=== PATIENT | female | born 1970 | race African-American/Black ===

== ENCOUNTER 2019-01-21 10:52 | Inpatient (IN) | payer OTHER ==
[2019-01-21 11:17] VITALS: BMI 27.4
--- NOTE | 2019-01-21 11:44 | HP ---
CIWA Score Nausea/Vomitin Muscle Tremors: 3 Anxiety: 3 Agitation: 2 Paroxysmal Sweats: 1-Minimal Palms Moist Orientation: 0-Oriented Tacttile Disturbances: 1-Very Mild Itch/Numbness Auditory Disturbances: 0-None Visual Disturbances: 0-None Headache: 2-Mild CIWA-Ar Total Score: 14 - Admission Criteria OASAS Guidelines: Admission for Medically Managed Detox: Requires at least one of the followin. CIWA greater than 12 2. Seizures within the past 24 hours 3. Delirium tremens within the past 24 hours 4. Hallucinations within the past 24 hours 5. Acute intervention needed for co occurring medical disorder 6. Acute intervention needed for co occurring psychiatric disorder 7. Severe withdrawal that cannot be handled at a lower level of care (continued vomiting, continued diarrhea, abnormal vital signs) requiring intravenous medication and/or fluids 8. Admission ROS [facility] Chief Complaint: I am here to get myself together from alcohol and drug Allergies/Adverse Reactions: Allergies Allergy/AdvReac Type Severity Reaction Status Date / Time No Known Allergies Allergy Verified 01/21/19 11:07 History of Present Illness: this 48 years old female with alcohol,cocaine,marijuana,k2 and heroin abused, seeking help to stop using, withdrawal symptom,multiple admissions before since age of 29 ,also been to rehab keep relapsing,last detox [facility] in 2018 homeless history of hypertension,type 2 dm,hypercholesterolemia non compliance nicotine dependence 8 cigarette,would like to have nicotine patch and gum denied seizure syncope history of bipolar disorder,schizophrenia,depression,ptsd longest sobriety 5 years plan for rehab after detox Exam Limitations: No Limitations - Ebola screening Have you traveled outside of the country in the last 21 days: No Have you had contact with anyone from an Ebola affected area: No - Review of Systems Constitutional: Loss of Appetite, Malaise, Night Sweats, Changes in sleep, Weakness EENT: reports: Tearing, Nose Congestion Respiratory: reports: No Symptoms reported Cardiac: reports: No Symptoms Reported GI: reports: Diarrhea, Nausea, Poor Appetite : reports: No Symptoms Reported Integumentary: reports: Dryness, Sweating Neuro: reports: Headache, Tremors Endocrine: reports: No Symptoms Reported (non compliance) Hematology: reports: No Symptoms Reported Psychiatric: reports: No Sypmtoms Reported, Judgement Intact, Mood/Affect Appropiate, Orientated x3 (bipolar disorder,schizophrenia,ptsd) Other Systems: Reviewed and Negative Patient History - Patient Medical History Hx Anemia: No Hx Asthma: No Hx Chronic Obstructive Pulmonary Disease (COPD): No Hx Cancer: No Hx Cardiac Disorders: No Hx Congestive Heart Failure: No Hx Hypertension: Yes (non compliance) Hx Hypercholesterolemia: Yes (non compliance) Hx Pacemaker: No HX Cerebrovascular Accident: No Hx Seizures: No Hx Dementia: No Hx Diabetes: Yes (NIDDM,non compliance) Hx Gastrointestinal Disorders: No Hx Liver Disease: No Hx Genitourinary Disorders: No Hx Sexually Transmitted Disorders: No Hx Renal Disease (ESRD): No Hx Thyroid Disease: No Hx Human Immunodeficiency Virus (HIV): No (last 11/14 negative) Hx Hepatitis C: No Hx Depression: Yes Hx Suicide Attempt: Yes (cutter right wrist at age 19) Hx Bipolar Disorder: Yes Hx Schizophrenia: Yes Other Medical History: ptsd,no suicidal,no homicidal - Patient Surgical History Past Surgical History: Yes Hx Neurologic Surgery: No Hx Cataract Extraction: No Hx Cardiac Surgery: No Hx Lung Surgery: No Hx Breast Surgery: No Hx Breast Biopsy: No Hx Abdominal Surgery: No Hx Appendectomy: No Hx Cholecystectomy: No Hx Genitourinary Surgery: No Hx Section: No Hx Orthopedic Surgery: Yes (fx, right lower leg in 2015 after a fall on black ice) Anesthesia Reaction: No - PPD History Previous Implant?: Yes Documented Results: Negative w/o proof Implanted On Prior R Admission?: No PPD to be Administered?: No - Reproductive History Patient is a Female of Child Bearing Age (11 -55 yrs old): Yes Last Menstrual Period: 01/15/19 Patient : No - Smoking Cessation Smoking history: Current every day smoker Have you smoked in the past 12 months: Yes Aproximately how many cigarettes per day: 6 Hx Chewing Tobacco Use: No Initiated information on smoking cessation: Yes 'Breaking Loose' booklet given: 01/21/19 - Substances abused Alcohol Substance route: Oral Frequency: Daily Amount used: 1 pint of vodka & 4 of 40 ozs of beer Age of first use: 29 Date of last use: 01/20/19 Crack Substance route: Smoking Frequency: Daily Amount used: $40 Age of first use: 28 Date of last use: 01/20/19 K2/Spice Substance route: Smoking Frequency: Daily Amount used: 2 sticks Age of first use: 43 Date of last use: 01/19/19 Heroin Substance route: Inhalation Frequency: Daily Amount used: $ 50 Age of first use: 43 Date of last use: 01/20/19 Marijuana/Hashish Substance route: Smoking Frequency: 3-6 times per week Amount used: 10$ Age of first use: 13 Date of last use: 01/19/19 Family Disease History - Family Disease History Family Disease History: Other: Father (alcohol,cirrhosis,), Mother (no contact) Admission Physical Exam [facility] - Vital Signs Vital Signs: Vital Signs - 24 hr 01/21/19 11:07 Temperature 97.3 F L Pulse Rate 87 Respiratory 16 Rate Blood Pressure 158/90 - Physical General Appearance: Yes: Moderate Distress, Tremorous, Irritable, Sweating, Anxious HEENTM: Yes: Normal ENT Inspection, UMAIR, Pharynx Normal Respiratory: Yes: Lungs Clear, Normal Breath Sounds, No Respiratory Distress Neck: Yes: No masses,lesions,Nodules, Supple, Trachea in good position Breast: Yes: Breast Exam Deferred Cardiology: Yes: Within Normal Limits, Regular Rhythm, Regular Rate, S1, S2 Abdominal: Yes: Within Normal Limits, Normal Bowel Sounds, Non Tender, Flat, Soft Genitourinary: Yes: Within Normal Limits Back: Yes: Muscle Spasm Musculoskeletal: Yes: Back pain, Muscle Pain Extremities: Yes: Tremors Neurological: Yes: 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-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 NML intact, Fully Oriented, Alert, Motor Strength 5/5 Integumentary: Yes: Dry Lymphatic: Yes: Within Normal Limits - Diagnostic (1) Alcohol dependence with uncomplicated withdrawal Current Visit: Yes Status: Acute (2) Cocaine dependence, uncomplicated Current Visit: Yes Status: Acute (3) Cannabis dependence Current Visit: Yes Status: Acute (4) Heroin abuse Current Visit: Yes Status: Acute (5) DM2 (diabetes mellitus, type 2) Current Visit: Yes Status: Acute (6) Hypertension Current Visit: Yes Status: Chronic (7) Hypercholesterolemia Current Visit: Yes Status: Chronic (8) Bipolar disorder Current Visit: Yes Status: Acute (9) PTSD (post-traumatic stress disorder) Current Visit: Yes Status: Acute Cleared for Admission [facility] - Detox or Rehab [facility] Level of Care: Medically Managed Detox Regimen/Protocol: Librium Inpatient Rehab Admission - Rehab Decision to Admit Inpatient rehab admission?: No
[2019-01-21] MEDS ORDERED: hydrOXYzine PAMOATE 25 MG CAPSULE (FP) PO PRN (11:57)
[2019-01-21] MEDS ORDERED: BISMUTH SUBSALICYLATE 262 MG/15 ML BTL PO PRN (11:57)
[2019-01-21] MEDS ORDERED: MENTHOL/PHENOL 1 EACH UD MM PRN (11:57)
[2019-01-21] MEDS ORDERED: chlordiazePOXIDE HCL 25 MG CAPSULE PO PRN (11:57)
[2019-01-21] MEDS ORDERED: NICOTINE POLACRILEX 2 MG GUM BUC PRN (11:57)
[2019-01-21] MEDS ORDERED: MAGNESIUM HYDROX 2400MG/30ML ORAL SUSPENSION 30 ML CUP PO PRN (11:57)
[2019-01-21] MEDS ORDERED: MAG HYDROX/AL HYDROX/SIMETH 30 ML UNIT-DOSE CUP PO PRN (11:57)
[2019-01-21] MEDS ORDERED: IBUPROFEN 400 MG TABLET (FP) PO PRN (11:57)
[2019-01-21] MEDS ORDERED: MELATONIN 5 MG TABLETS PO PRN (11:57)
[2019-01-21] MEDS ORDERED: MAGNESIUM CITRATE 300 ML BOTTLE PO PRN (11:57)
[2019-01-21] MEDS ORDERED: METHOCARBAMOL 500 MG TABLET PO PRN (11:57)
[2019-01-21] MEDS ORDERED: ACETAMINOPHEN 325 MG TABLET (FP) PO PRN ×2 (11:57)
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
[2019-01-21] MEDS: NICOTINE 14 MG/24 HOURS TOPICAL PATCH TD SCH (14:04)
[2019-01-21 14:22] LABS: HEMATOCRIT 40.3 % (32.4-45.2); HEMOGLOBIN 13.5 GM/dL (10.7-15.3); MCH 32.3 pg (25.7-33.7); MCHC 33.6 g/dl (32.0-36.0); MEAN CELL VOLUME 96.1 fl (80-96); MEAN PLT VOLUME 8.3 fl (7.5-11.1); PLATELET COUNT 340 K/MM3 (134-434); RBC 4.19 M/mm3 (3.60-5.2); RDW 17.3 % (11.6-15.6); WHITE BLOOD COUNT 3.1 K/mm3 (4.0-10.0)
[2019-01-21 14:47] LABS: ALBUMIN 3.7 g/dl (3.4-5.0); BILIRUBIN,TOTAL 0.4 mg/dL (0.2-1); BLOOD UREA NITROGEN 13.4 mg/dL (7-18); CALCIUM 9.1 mg/dL (8.5-10.1); POTASSIUM 3.9 mmol/L (3.5-5.1); TOT PROT 7.2 g/dl (6.4-8.2)
[2019-01-21] MEDS: glipiZIDE-XL 5 MG TAB.ER.24 PO SCH (16:47)
[2019-01-21] MEDS: metFORMIN HCL 500 MG TABLET (FP) PO SCH (16:47)
[2019-01-21] MEDS: chlordiazePOXIDE HCL 25 MG CAPSULE PO SCH ×2 (16:47→22:08)
--- NOTE | 2019-01-21 17:17 | PN ---
S Progress Note Note: 48 yo admitted earlier today w/ hx of diabetes, HTN, alcohol, heroin, cocaine, and marijuana/K2 use disorder. C/o tenderness skin (R) lower abdominal area. States has not noticed this before. Vital Signs 01/21/19 01/21/19 01/21/19 11:07 13:50 16:53 Temperature 97.3 F L 97.3 F L 96.7 F L Pulse Rate 87 88 108 H Respiratory 16 18 16 Rate Blood Pressure 158/90 139/72 128/83 Skin beneath fold of (R) lower abd area w/ two smooth, flat, shiny 1 cm each, areas of increased erythema, hairless, and tender to palpation. No increased warmth. Possible fungal. Plan:Anti-fungal cream BID. Patient instructed to notify Provider if no improvement or worsens.
[2019-01-21] MEDS: ATORVASTATIN CA 20 MG TABLET (FP) PO SCH (21:17)
[2019-01-21] MEDS: QUEtiapine FUMARATE 100 MG TABLET (FP) PO SCH (21:18)
[2019-01-21] MEDS: THIAMINE HCL 100 MG TABLET (FP) PO SCH (21:18)
[2019-01-21] MEDS: CLOTRIMAZOLE 1% CREAM 15 GM TUBE TP SCH (21:23)
[2019-01-22] MEDS: chlordiazePOXIDE HCL 25 MG CAPSULE PO SCH ×4 (06:57→22:03)
[2019-01-22] MEDS: metFORMIN HCL 500 MG TABLET (FP) PO SCH ×2 (06:57→17:19)
[2019-01-22] MEDS: glipiZIDE-XL 5 MG TAB.ER.24 PO SCH ×2 (06:57→17:19)
[2019-01-22] MEDS: CLOTRIMAZOLE 1% CREAM 15 GM TUBE TP SCH ×2 (10:37→22:06)
[2019-01-22] MEDS: PRENATAL VITAMINS W/ FOLIC ACID TABLET (FP) PO SCH (10:37)
[2019-01-22] MEDS: NICOTINE 14 MG/24 HOURS TOPICAL PATCH TD SCH (10:37)
--- NOTE | 2019-01-22 12:17 | PN ---
[facility] CIWA - CIWA Score Nausea/Vomitin-No Nausea/No Vomiting Muscle Tremors: 3 Anxiety: 3 Agitation: 3 Paroxysmal Sweats: 3 Orientation: 0-Oriented Tacttile Disturbances: 0-None Auditory Disturbances: 0-None Visual Disturbances: 0-None Headache: 0-None Present CIWA-Ar Total Score: 12 S Progress Note (SOAP) Subjective: groggy sleepy sweats irritable Objective: 01/22/19 12:14 Vital Signs Temperature 97.3 F L 01/22/19 09:39 Pulse Rate 94 H 01/22/19 09:39 Respiratory Rate 16 01/22/19 09:39 Blood Pressure 148/86 01/22/19 09:39 O2 Sat by Pulse Oximetry (%) Laboratory Tests 01/21/19 01/21/19 01/21/19 12:05 12:05 12:05 WBC 3.1 L RBC 4.19 Hgb 13.5 Hct 40.3 MCV 96.1 H MCH 32.3 MCHC 33.6 RDW 17.3 H Plt Count 340 MPV 8.3 Sodium 140 Potassium 3.9 Chloride 103 Carbon Dioxide 27 Anion Gap 10 BUN 13.4 Creatinine 1.0 Est GFR (CKD-EPI)AfAm 76.61 Est GFR (CKD-EPI)NonAf 66.10 POC Glucometer Random Glucose 298 H Calcium 9.1 Total Bilirubin 0.4 AST 22 ALT 32 Alkaline Phosphatase 161 H Total Protein 7.2 Albumin 3.7 Triglycerides 88 Cholesterol 234 H Total LDL Cholesterol 116 H HDL Cholesterol 91 H RPR Titer Nonreactive 01/21/19 01/21/19 01/21/19 12:05 12:30 16:40 WBC RBC Hgb Hct MCV MCH MCHC RDW Plt Count MPV Sodium Potassium Chloride Carbon Dioxide Anion Gap BUN Creatinine Est GFR (CKD-EPI)AfAm Est GFR (CKD-EPI)NonAf POC Glucometer 306 271 Random Glucose Calcium Total Bilirubin AST ALT Alkaline Phosphatase Total Protein Albumin Triglycerides Cancelled Cholesterol Cancelled Total LDL Cholesterol Cancelled HDL Cholesterol Cancelled RPR Titer 01/22/19 06:56 WBC RBC Hgb Hct MCV MCH MCHC RDW Plt Count MPV Sodium Potassium Chloride Carbon Dioxide Anion Gap BUN Creatinine Est GFR (CKD-EPI)AfAm Est GFR (CKD-EPI)NonAf POC Glucometer 212 Random Glucose Calcium Total Bilirubin AST ALT Alkaline Phosphatase Total Protein Albumin Triglycerides Cholesterol Total LDL Cholesterol HDL Cholesterol RPR Titer labs noted; elevated cholesterol noted pt is currently taking cholesterol medication. aaox3 lying in bed no acute distress Assessment: 01/22/19 12:17 withdrawal sx Plan: continue detox increase fluids
[2019-01-22] MEDS: ATORVASTATIN CA 20 MG TABLET (FP) PO SCH (22:03)
[2019-01-22] MEDS: QUEtiapine FUMARATE 100 MG TABLET (FP) PO SCH (22:03)
[2019-01-22] MEDS: THIAMINE HCL 100 MG TABLET (FP) PO SCH (22:03)
[2019-01-22] MEDS ORDERED: COLLOIDAL OATMEAL 1 BAR EACH TP PRN (23:48)
[2019-01-23] MEDS: glipiZIDE-XL 5 MG TAB.ER.24 PO SCH (06:36)
[2019-01-23] MEDS: chlordiazePOXIDE HCL 25 MG CAPSULE PO SCH ×2 (06:36→10:29)
[2019-01-23] MEDS: metFORMIN HCL 500 MG TABLET (FP) PO SCH (06:36)
[2019-01-23] MEDS: NICOTINE 14 MG/24 HOURS TOPICAL PATCH TD SCH (09:14)
[2019-01-23] MEDS: PRENATAL VITAMINS W/ FOLIC ACID TABLET (FP) PO SCH (10:29)
[2019-01-23] MEDS: CLOTRIMAZOLE 1% CREAM 15 GM TUBE TP SCH (10:30)
--- NOTE | 2019-01-23 10:54 | PN ---
S CIWA - CIWA Score Nausea/Vomitin-No Nausea/No Vomiting Muscle Tremors: 2 Anxiety: 1-Mildly Anxious Agitation: 2 Paroxysmal Sweats: 2 Orientation: 0-Oriented Tacttile Disturbances: 0-None Auditory Disturbances: 0-None Visual Disturbances: 0-None Headache: 0-None Present CIWA-Ar Total Score: 7 [facility] Progress Note (SOAP) Subjective: sweats irritable interrupted sleep feeling better Objective: 01/23/19 10:53 Vital Signs Temperature 98.1 F 01/23/19 09:32 Pulse Rate 94 H 01/23/19 09:32 Respiratory Rate 16 01/23/19 09:32 Blood Pressure 128/87 01/23/19 09:32 O2 Sat by Pulse Oximetry (%) Laboratory Tests 01/21/19 01/21/19 01/21/19 12:05 12:05 12:05 WBC 3.1 L RBC 4.19 Hgb 13.5 Hct 40.3 MCV 96.1 H MCH 32.3 MCHC 33.6 RDW 17.3 H Plt Count 340 MPV 8.3 Sodium 140 Potassium 3.9 Chloride 103 Carbon Dioxide 27 Anion Gap 10 BUN 13.4 Creatinine 1.0 Est GFR (CKD-EPI)AfAm 76.61 Est GFR (CKD-EPI)NonAf 66.10 POC Glucometer Random Glucose 298 H Calcium 9.1 Total Bilirubin 0.4 AST 22 ALT 32 Alkaline Phosphatase 161 H Total Protein 7.2 Albumin 3.7 Triglycerides 88 Cholesterol 234 H Total LDL Cholesterol 116 H HDL Cholesterol 91 H RPR Titer Nonreactive 01/21/19 01/21/19 01/21/19 12:05 12:30 16:40 WBC RBC Hgb Hct MCV MCH MCHC RDW Plt Count MPV Sodium Potassium Chloride Carbon Dioxide Anion Gap BUN Creatinine Est GFR (CKD-EPI)AfAm Est GFR (CKD-EPI)NonAf POC Glucometer 306 271 Random Glucose Calcium Total Bilirubin AST ALT Alkaline Phosphatase Total Protein Albumin Triglycerides Cancelled Cholesterol Cancelled Total LDL Cholesterol Cancelled HDL Cholesterol Cancelled RPR Titer 01/22/19 01/22/19 01/23/19 06:56 16:58 06:35 WBC RBC Hgb Hct MCV MCH MCHC RDW Plt Count MPV Sodium Potassium Chloride Carbon Dioxide Anion Gap BUN Creatinine Est GFR (CKD-EPI)AfAm Est GFR (CKD-EPI)NonAf POC Glucometer [phone] Random Glucose Calcium Total Bilirubin AST ALT Alkaline Phosphatase Total Protein Albumin Triglycerides Cholesterol Total LDL Cholesterol HDL Cholesterol RPR Titer aaox3 ambulating no acute distress Assessment: 01/23/19 10:53 mild withdrawal Plan: continue detox increase fluids
[2019-01-23 13:51] VITALS: BP 137/91; PULSE 98; TEMP 97.5
--- NOTE | 2019-01-23 15:15 | PN ---
S Progress Note Note: pt was admitted in withdrawals and c/o of withdrawal s/s and aggressive symptomatic management attempted however, pt in spite of extensive motivational counseling regarding the risk of relapse, DT, seizures and or loss chose to sign out AMA.
--- NOTE | 2019-01-23 15:25 | DS ---
[facility] Detox Discharge Summary Admission Date: 01/21/19 - History Present History: Alcohol Dependence, Cannabis Dependence, Cocaine Dependence, Opioid Dependence - Physical Exam Results Vital Signs: Vital Signs Temperature 97.5 F L 01/23/19 13:51 Pulse Rate 98 H 01/23/19 13:51 Respiratory Rate 18 01/23/19 13:51 Blood Pressure 137/91 01/23/19 13:51 O2 Sat by Pulse Oximetry (%) Pertinent Admission Physical Exam Findings: pt arrived in withdrawals Laboratory Tests 01/21/19 01/21/19 01/21/19 12:05 12:05 12:05 WBC 3.1 L RBC 4.19 Hgb 13.5 Hct 40.3 MCV 96.1 H MCH 32.3 MCHC 33.6 RDW 17.3 H Plt Count 340 MPV 8.3 Sodium 140 Potassium 3.9 Chloride 103 Carbon Dioxide 27 Anion Gap 10 BUN 13.4 Creatinine 1.0 Est GFR (CKD-EPI)AfAm 76.61 Est GFR (CKD-EPI)NonAf 66.10 POC Glucometer Random Glucose 298 H Calcium 9.1 Total Bilirubin 0.4 AST 22 ALT 32 Alkaline Phosphatase 161 H Total Protein 7.2 Albumin 3.7 Triglycerides 88 Cholesterol 234 H Total LDL Cholesterol 116 H HDL Cholesterol 91 H RPR Titer Nonreactive 01/21/19 01/21/19 01/21/19 12:05 12:30 16:40 WBC RBC Hgb Hct MCV MCH MCHC RDW Plt Count MPV Sodium Potassium Chloride Carbon Dioxide Anion Gap BUN Creatinine Est GFR (CKD-EPI)AfAm Est GFR (CKD-EPI)NonAf POC Glucometer 306 271 Random Glucose Calcium Total Bilirubin AST ALT Alkaline Phosphatase Total Protein Albumin Triglycerides Cancelled Cholesterol Cancelled Total LDL Cholesterol Cancelled HDL Cholesterol Cancelled RPR Titer 01/22/19 01/22/19 01/23/19 06:56 16:58 06:35 WBC RBC Hgb Hct MCV MCH MCHC RDW Plt Count MPV Sodium Potassium Chloride Carbon Dioxide Anion Gap BUN Creatinine Est GFR (CKD-EPI)AfAm Est GFR (CKD-EPI)NonAf POC Glucometer 212 228 228 Random Glucose Calcium Total Bilirubin AST ALT Alkaline Phosphatase Total Protein Albumin Triglycerides Cholesterol Total LDL Cholesterol HDL Cholesterol RPR Titer labs noted pt chose to sign out AMA. pt is aaox3 ambulating no s/s of withdrawals - Treatment Hospital Course: Detox Protocol Followed - Medication Discharge Medications: Ambulatory Orders Atorvastatin Calcium [Lipitor] 20 mg PO HS 08/02/18 Divalproex Sodium [Divalproex Sodium ER] 1,000 mg PO HS 08/02/18 Glipizide Xl [Glucotrol Xl -] 5 mg PO BID 08/02/18 Metformin HCl [Glucophage] 500 mg PO BID 08/02/18 Mirtazapine [Remeron -] 30 mg PO HS 08/02/18 traZODone HCL [Trazodone HCl] 50 mg PO HS 08/02/18 - Diagnosis (1) Alcohol dependence with uncomplicated withdrawal Current Visit: Yes Status: Acute (2) Bipolar disorder Current Visit: Yes Status: Acute (3) Cannabis dependence Current Visit: Yes Status: Acute (4) Cannabis dependence Current Visit: Yes Status: Acute (5) Cocaine dependence Current Visit: Yes Status: Acute (6) Cocaine dependence, uncomplicated Current Visit: Yes Status: Acute (7) DM2 (diabetes mellitus, type 2) Current Visit: Yes Status: Acute (8) Heroin abuse Current Visit: Yes Status: Acute (9) PTSD (post-traumatic stress disorder) Current Visit: Yes Status: Acute (10) Substance induced mood disorder Current Visit: Yes Status: Acute (11) Substance-induced sleep disorder Current Visit: Yes Status: Acute (12) Uncomplicated opioid dependence Current Visit: Yes Status: Acute (13) Hypercholesterolemia Current Visit: Yes Status: Chronic (14) Hypertension Current Visit: Yes Status: Chronic (15) Nicotine dependence Current Visit: Yes Status: Chronic (16) PTSD (post-traumatic stress disorder) Current Visit: Yes Status: Chronic (17) Schizoaffective disorder Current Visit: Yes Status: Chronic - AMA Did Patient Leave Against Medical Advice: Yes
[2019-01-24] MEDS ORDERED: chlordiazePOXIDE HCL 10 MG CAPSULE PO PRN
[2019-01-24] MEDS ORDERED: chlordiazePOXIDE HCL 10 MG CAPSULE PO SCH (05:00)
[2019-01-25] MEDS ORDERED: chlordiazePOXIDE HCL 10 MG CAPSULE PO SCH (05:00)
[2019-01-26] MEDS ORDERED: chlordiazePOXIDE HCL 10 MG CAPSULE PO ONE (05:00)
== END 2019-01-23 14:59 | disposition left against medical advice (07) | DRG 770 ==
LOC: YASAS 10:52 → Y6N 12:31
PROVIDERS: ADMIT Surgery; ATTEND Surgery
PROC: HZ2ZZZZ Detoxification Services for Substance Abuse Treatment (ICD-10-PCS; principal; 2019-01-21)
DX: F10.230 Alcohol dependence with withdrawal, uncomplicated (principal); F11.20 Opioid dependence, uncomplicated; F14.20 Cocaine dependence, uncomplicated; F12.20 Cannabis dependence, uncomplicated; F17.210 Nicotine dependence, cigarettes, uncomplicated; F31.9 Bipolar disorder, unspecified; F43.10 Post-traumatic stress disorder, unspecified; F19.24 Other psychoactive substance dependence with psychoactive substance-induced mood disorder; F19.282 Other psychoactive substance dependence with psychoactive substance-induced sleep disorder; F25.9 Schizoaffective disorder, unspecified; I10 Essential (primary) hypertension; E11.9 Type 2 diabetes mellitus without complications; E78.5 Hyperlipidemia, unspecified; B35.6 Tinea cruris; Z91.14 Patient's other noncompliance with medication regimen; Z91.5 Personal history of self-harm; Z59.0 Homelessness
CPT/HCPCS: 36415; 80053; 80061; 82962; 83721; 85027; 86480; 86593

== ENCOUNTER 2019-03-03 09:17 | Inpatient (IN) | payer OTHER ==
[2019-03-03 09:52] VITALS: BMI 27.3
--- NOTE | 2019-03-03 10:59 | PN ---
[facility] Progress Note Note: Met with the pt. to assess her for detox. Left index finger noted to be edematous and contracted. Pt. reports she was told at the ER at [facility] and she requires surgery (client did not provide discharge paperwork). Pt. sent to [facility] ER to be medically cleared. Report given to Dr. Francis.
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
[2019-03-03] MEDS ORDERED: MAGNESIUM CITRATE 300 ML BOTTLE PO PRN (15:03)
[2019-03-03] MEDS ORDERED: ACETAMINOPHEN 325 MG TABLET (FP) PO PRN ×2 (15:03)
[2019-03-03] MEDS ORDERED: MAG HYDROX/AL HYDROX/SIMETH 30 ML UNIT-DOSE CUP PO PRN (15:03)
[2019-03-03] MEDS ORDERED: chlordiazePOXIDE HCL 25 MG CAPSULE PO ONE (15:03)
[2019-03-03] MEDS ORDERED: MAGNESIUM HYDROX 2400MG/30ML ORAL SUSPENSION 30 ML CUP PO PRN (15:03)
[2019-03-03] MEDS ORDERED: chlordiazePOXIDE HCL 25 MG CAPSULE PO PRN (15:03)
[2019-03-03] MEDS ORDERED: NICOTINE POLACRILEX 2 MG GUM BUC PRN (15:03)
[2019-03-03] MEDS ORDERED: PROCHLORPERAZINE MALEATE 5 MG TABLET PO PRN (15:03)
[2019-03-03] MEDS ORDERED: MENTHOL/PHENOL 1 EACH UD MM PRN (15:03)
[2019-03-03] MEDS ORDERED: BISMUTH SUBSALICYLATE 524 MG/30 ML UD PO PRN (15:03)
[2019-03-03] MEDS ORDERED: AZITHROMYCIN 500 MG TABLET PO SCH (15:30)
[2019-03-03] MEDS: chlordiazePOXIDE HCL 25 MG CAPSULE PO SCH ×2 (17:34→22:25)
[2019-03-03] MEDS: metFORMIN HCL 500 MG TABLET (FP) PO SCH (17:34)
[2019-03-03] MEDS: NEOMYCIN/POLYMYXN/HC OTIC SOLUTION 10 ML BOTTLE AD SCH (19:39)
[2019-03-03] MEDS: ATORVASTATIN CA 20 MG TABLET (FP) PO SCH (22:25)
[2019-03-03] MEDS: THIAMINE HCL 100 MG TABLET (FP) PO SCH (22:25)
[2019-03-03] MEDS: MELATONIN 5 MG TABLETS PO PRN (22:25)
[2019-03-03] MEDS: glipiZIDE-XL 5 MG TAB.ER.24 PO SCH (23:57)
[2019-03-04] MEDS: NEOMYCIN/POLYMYXN/HC OTIC SOLUTION 10 ML BOTTLE AD SCH ×5 (04:15→23:53)
[2019-03-04] MEDS: chlordiazePOXIDE HCL 25 MG CAPSULE PO SCH ×4 (07:05→22:19)
[2019-03-04] MEDS: glipiZIDE-XL 5 MG TAB.ER.24 PO SCH ×2 (07:06→17:15)
[2019-03-04] MEDS: metFORMIN HCL 500 MG TABLET (FP) PO SCH ×3 (07:06→17:15)
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
--- NOTE | 2019-03-04 10:18 | PN ---
S CIWA - CIWA Score Nausea/Vomitin-No Nausea/No Vomiting Muscle Tremors: 2 Anxiety: 3 Agitation: 3 Paroxysmal Sweats: 2 Orientation: 0-Oriented Tacttile Disturbances: 0-None Auditory Disturbances: 0-None Visual Disturbances: 0-None Headache: 1-Very Mild CIWA-Ar Total Score: 11 BHS Progress Note (SOAP) Subjective: sweats shakes interrupted sleep body aches headache tired/sleepy Objective: 03/04/19 10:17 Vital Signs Temperature 99.7 F H 03/04/19 09:15 Pulse Rate 106 H 03/04/19 09:15 Respiratory Rate 20 03/04/19 09:15 Blood Pressure 142/99 03/04/19 09:15 O2 Sat by Pulse Oximetry (%) Laboratory Tests 03/03/19 03/03/19 03/04/19 11:12 17:25 05:36 POC Glucometer 286 252 220 rest of labs pending aaox3 ambulating no acute distress Assessment: 03/04/19 10:17 withdrawals Plan: continue detox increase fluids pending labs
[2019-03-04] MEDS: AZITHROMYCIN 250 MG TABLET PO SCH (10:21)
[2019-03-04] MEDS: NICOTINE 14 MG/24 HOURS TOPICAL PATCH TD SCH (10:21)
[2019-03-04] MEDS: PRENATAL VITAMINS W/ FOLIC ACID TABLET (FP) PO SCH (10:21)
[2019-03-04 11:29] LABS: ALBUMIN 2.9 g/dl (3.4-5.0); BILIRUBIN,TOTAL 0.4 mg/dL (0.2-1); BLOOD UREA NITROGEN 8.9 mg/dL (7-18); CALCIUM 8.7 mg/dL (8.5-10.1); CREATININE 0.8 mg/dL (0.55-1.3); POTASSIUM 4.3 mmol/L (3.5-5.1); TOT PROT 5.8 g/dl (6.4-8.2)
[2019-03-04 11:31] LABS: HEMOGLOBIN 13.3 GM/dL (10.7-15.3); MCH 32.3 pg (25.7-33.7); MCHC 33.3 g/dl (32.0-36.0); MEAN CELL VOLUME 96.8 fl (80-96); MEAN PLT VOLUME 8.5 fl (7.5-11.1); PLATELET COUNT 236 K/MM3 (134-434); RBC 4.13 M/mm3 (3.60-5.2); RDW 16.7 % (11.6-15.6)
[2019-03-04] MEDS: IBUPROFEN 400 MG TABLET (FP) PO PRN (19:54)
[2019-03-04] MEDS: ATORVASTATIN CA 20 MG TABLET (FP) PO SCH (22:19)
[2019-03-04] MEDS: THIAMINE HCL 100 MG TABLET (FP) PO SCH (22:19)
[2019-03-04] MEDS: MELATONIN 5 MG TABLETS PO PRN (22:21)
[2019-03-05] MEDS: NEOMYCIN/POLYMYXN/HC OTIC SOLUTION 10 ML BOTTLE AD SCH ×3 (06:06→18:52)
[2019-03-05] MEDS: chlordiazePOXIDE HCL 25 MG CAPSULE PO SCH ×4 (06:06→22:26)
[2019-03-05] MEDS: metFORMIN HCL 500 MG TABLET (FP) PO SCH ×2 (08:45→17:07)
[2019-03-05] MEDS: glipiZIDE-XL 5 MG TAB.ER.24 PO SCH ×2 (08:45→17:07)
[2019-03-05] MEDS: AZITHROMYCIN 250 MG TABLET PO SCH (10:23)
[2019-03-05] MEDS: PRENATAL VITAMINS W/ FOLIC ACID TABLET (FP) PO SCH (10:23)
[2019-03-05] MEDS: NICOTINE 14 MG/24 HOURS TOPICAL PATCH TD SCH (10:24)
[2019-03-05] MEDS: METHOCARBAMOL 500 MG TABLET PO PRN ×2 (11:44→19:11)
--- NOTE | 2019-03-05 14:08 | PN ---
S CIWA - CIWA Score Nausea/Vomitin-No Nausea/No Vomiting Muscle Tremors: 2 Anxiety: 2 Agitation: 2 Paroxysmal Sweats: 1-Minimal Palms Moist Orientation: 0-Oriented Tacttile Disturbances: 0-None Auditory Disturbances: 0-None Visual Disturbances: 0-None Headache: 0-None Present CIWA-Ar Total Score: 7 BHS Progress Note (SOAP) Subjective: irritable agitation sweats Objective: 03/05/19 14:07 Vital Signs Temperature 97.9 F 03/05/19 13:39 Pulse Rate 84 03/05/19 13:39 Respiratory Rate 18 03/05/19 13:39 Blood Pressure 115/81 03/05/19 13:39 O2 Sat by Pulse Oximetry (%) Laboratory Tests 03/03/19 03/03/19 03/03/19 10:10 11:12 17:25 WBC RBC Hgb Hct MCV MCH MCHC RDW Plt Count MPV Sodium Potassium Chloride Carbon Dioxide Anion Gap BUN Creatinine Est GFR (CKD-EPI)AfAm Est GFR (CKD-EPI)NonAf POC Glucometer 286 252 Random Glucose Calcium Total Bilirubin AST ALT Alkaline Phosphatase Total Protein Albumin POC Urine HCG, Qual Negative HIV 1&2 Antibody Screen HIV P24 Antigen 03/04/19 03/04/19 03/04/19 05:36 07:45 07:45 WBC 4.0 RBC 4.13 Hgb 13.3 Hct 40.0 MCV 96.8 H MCH 32.3 MCHC 33.3 RDW 16.7 H Plt Count 236 D MPV 8.5 Sodium Potassium Chloride Carbon Dioxide Anion Gap BUN Creatinine Est GFR (CKD-EPI)AfAm Est GFR (CKD-EPI)NonAf POC Glucometer 220 Random Glucose Calcium Total Bilirubin AST ALT Alkaline Phosphatase Total Protein Albumin POC Urine HCG, Qual HIV 1&2 Antibody Screen Negative HIV P24 Antigen Negative 03/04/19 03/04/19 07:45 16:47 WBC RBC Hgb Hct MCV MCH MCHC RDW Plt Count MPV Sodium 136 Potassium 4.3 Chloride 104 Carbon Dioxide 27 Anion Gap 6 L BUN 8.9 Creatinine 0.8 Est GFR (CKD-EPI)AfAm 100.33 Est GFR (CKD-EPI)NonAf 86.57 POC Glucometer 124 Random Glucose 214 H Calcium 8.7 Total Bilirubin 0.4 AST 10 L ALT 17 Alkaline Phosphatase 93 Total Protein 5.8 L Albumin 2.9 L POC Urine HCG, Qual HIV 1&2 Antibody Screen HIV P24 Antigen labs noted aaox3 ambulating no acute distress Assessment: 03/05/19 14:08 withdrawals Plan: continue detox increase fluids
[2019-03-05] MEDS ORDERED: NICOTINE 14 MG/24 HOURS TOPICAL PATCH TD ONE (15:50)
[2019-03-05] MEDS: ATORVASTATIN CA 20 MG TABLET (FP) PO SCH (22:26)
[2019-03-05] MEDS: THIAMINE HCL 100 MG TABLET (FP) PO SCH (22:26)
[2019-03-05] MEDS: IBUPROFEN 400 MG TABLET (FP) PO PRN (22:26)
[2019-03-05] MEDS: MELATONIN 5 MG TABLETS PO PRN (22:28)
[2019-03-05] MEDS ORDERED: QUEtiapine FUMARATE 100 MG TABLET (FP) PO ONE (23:44)
[2019-03-06] MEDS ORDERED: chlordiazePOXIDE HCL 10 MG CAPSULE PO PRN
[2019-03-06] MEDS: NEOMYCIN/POLYMYXN/HC OTIC SOLUTION 10 ML BOTTLE AD SCH ×2 (03:03→06:55)
[2019-03-06] MEDS: chlordiazePOXIDE HCL 10 MG CAPSULE PO SCH ×2 (06:55→10:49)
[2019-03-06] MEDS: glipiZIDE-XL 5 MG TAB.ER.24 PO SCH (06:59)
[2019-03-06] MEDS: metFORMIN HCL 500 MG TABLET (FP) PO SCH (06:59)
[2019-03-06 10:27] VITALS: BP 115/70; PULSE 84; TEMP 97.7
[2019-03-06] MEDS: PRENATAL VITAMINS W/ FOLIC ACID TABLET (FP) PO SCH (10:48)
[2019-03-06] MEDS: NICOTINE 14 MG/24 HOURS TOPICAL PATCH TD SCH (10:49)
--- NOTE | 2019-03-06 14:33 | DS ---
[facility] Detox Discharge Summary Admission Date: 03/03/19 Discharge Date: 03/06/19 - History Present History: Alcohol Dependence, Cannabis Dependence, Cocaine Dependence - Physical Exam Results Vital Signs: Vital Signs Temperature 97.7 F 03/06/19 10:26 Pulse Rate 84 03/06/19 10:26 Respiratory Rate 18 03/06/19 10:26 Blood Pressure 115/70 03/06/19 10:26 O2 Sat by Pulse Oximetry (%) Pertinent Admission Physical Exam Findings: pt arrived in withdrawals Laboratory Tests 03/03/19 03/03/19 03/03/19 10:10 11:12 17:25 WBC RBC Hgb Hct MCV MCH MCHC RDW Plt Count MPV Sodium Potassium Chloride Carbon Dioxide Anion Gap BUN Creatinine Est GFR (CKD-EPI)AfAm Est GFR (CKD-EPI)NonAf POC Glucometer 286 252 Random Glucose Calcium Total Bilirubin AST ALT Alkaline Phosphatase Total Protein Albumin POC Urine HCG, Qual Negative HIV 1&2 Antibody Screen HIV P24 Antigen 03/04/19 03/04/19 03/04/19 05:36 07:45 07:45 WBC 4.0 RBC 4.13 Hgb 13.3 Hct 40.0 MCV 96.8 H MCH 32.3 MCHC 33.3 RDW 16.7 H Plt Count 236 D MPV 8.5 Sodium Potassium Chloride Carbon Dioxide Anion Gap BUN Creatinine Est GFR (CKD-EPI)AfAm Est GFR (CKD-EPI)NonAf POC Glucometer 220 Random Glucose Calcium Total Bilirubin AST ALT Alkaline Phosphatase Total Protein Albumin POC Urine HCG, Qual HIV 1&2 Antibody Screen Negative HIV P24 Antigen Negative 03/04/19 03/04/19 03/05/19 07:45 16:47 16:51 WBC RBC Hgb Hct MCV MCH MCHC RDW Plt Count MPV Sodium 136 Potassium 4.3 Chloride 104 Carbon Dioxide 27 Anion Gap 6 L BUN 8.9 Creatinine 0.8 Est GFR (CKD-EPI)AfAm 100.33 Est GFR (CKD-EPI)NonAf 86.57 POC Glucometer 124 270 Random Glucose 214 H Calcium 8.7 Total Bilirubin 0.4 AST 10 L ALT 17 Alkaline Phosphatase 93 Total Protein 5.8 L Albumin 2.9 L POC Urine HCG, Qual HIV 1&2 Antibody Screen HIV P24 Antigen 03/06/19 06:59 WBC RBC Hgb Hct MCV MCH MCHC RDW Plt Count MPV Sodium Potassium Chloride Carbon Dioxide Anion Gap BUN Creatinine Est GFR (CKD-EPI)AfAm Est GFR (CKD-EPI)NonAf POC Glucometer 306 Random Glucose Calcium Total Bilirubin AST ALT Alkaline Phosphatase Total Protein Albumin POC Urine HCG, Qual HIV 1&2 Antibody Screen HIV P24 Antigen aaox3 ambulating no acute distress - Treatment Hospital Course: Detox Protocol Followed, Detoxed Safely, Responded well, Discharged Condition Good, Rehab Referral Accepted Patient has Accepted a Rehab Referral to: pt refused aftercare; referral were provided - Medication Discharge Medications: Ambulatory Orders Atorvastatin Calcium [Lipitor] 20 mg PO HS 08/02/18 Divalproex Sodium [Divalproex Sodium ER] 1,000 mg PO HS 08/02/18 Glipizide Xl [Glucotrol Xl -] 5 mg PO BID 08/02/18 Metformin HCl [Glucophage] 500 mg PO BID 08/02/18 Mirtazapine [Remeron -] 30 mg PO HS 08/02/18 traZODone HCL [Trazodone HCl] 50 mg PO HS 08/02/18 Ibuprofen [Ibu] 600 mg PO PRN 03/03/19 [id number] Ear Soln AD 03/03/19 - Diagnosis (1) Alcohol dependence with uncomplicated withdrawal Status: Chronic (2) Bipolar disorder Status: Acute (3) Cannabis dependence Status: Acute (4) Cocaine dependence, uncomplicated Status: Acute (5) PTSD (post-traumatic stress disorder) Status: Acute (6) Substance induced mood disorder Status: Acute (7) Substance-induced anxiety disorder Status: Acute (8) Substance-induced sleep disorder Status: Acute (9) DM2 (diabetes mellitus, type 2) Status: Chronic Qualifiers: Diabetes mellitus detention insulin use: 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 Diabetes mellitus complication status: without complication Qualified Code(s): E11.9 - Type 2 diabetes mellitus without complications (10) Dislocation, finger, interphalangeal joint Status: Chronic Qualifiers: Encounter type: subsequent encounter Qualified Code(s): S63.279D - Dislocation of unspecified interphalangeal joint of unspecified finger, subsequent encounter (11) Hypercholesterolemia Status: Chronic (12) Hypertension Status: Chronic Qualifiers: Hypertension type: essential hypertension Qualified Code(s): I10 - Essential (primary) hypertension (13) Nicotine dependence Status: Chronic Qualifiers: Nicotine product type: cigarettes Substance use status: uncomplicated Qualified Code(s): F17.210 - Nicotine dependence, cigarettes, uncomplicated (14) PTSD (post-traumatic stress disorder) Status: Chronic (15) Schizoaffective disorder Status: Chronic - AMA Did Patient Leave Against Medical Advice: No
[2019-03-07] MEDS ORDERED: chlordiazePOXIDE HCL 10 MG CAPSULE PO SCH (05:00)
[2019-03-08] MEDS ORDERED: chlordiazePOXIDE HCL 10 MG CAPSULE PO ONE (05:00)
== END 2019-03-06 12:37 | disposition home or self-care (01) | DRG 773 ==
LOC: YASAS 09:17 → Y6N 11:10
PROVIDERS: ADMIT Allergy & Immunology; ATTEND Allergy & Immunology
PROC: HZ2ZZZZ Detoxification Services for Substance Abuse Treatment (ICD-10-PCS; principal; 2019-03-03)
DX: F11.23 Opioid dependence with withdrawal (principal); F10.230 Alcohol dependence with withdrawal, uncomplicated; F14.20 Cocaine dependence, uncomplicated; F12.20 Cannabis dependence, uncomplicated; F17.210 Nicotine dependence, cigarettes, uncomplicated; F43.10 Post-traumatic stress disorder, unspecified; F31.9 Bipolar disorder, unspecified; F19.24 Other psychoactive substance dependence with psychoactive substance-induced mood disorder; F19.280 Other psychoactive substance dependence with psychoactive substance-induced anxiety disorder; F25.9 Schizoaffective disorder, unspecified; I10 Essential (primary) hypertension; E11.9 Type 2 diabetes mellitus without complications; E78.5 Hyperlipidemia, unspecified; S63.279D Dislocation of unspecified interphalangeal joint of unspecified finger, subsequent encounter; X58.XXXD Exposure to other specified factors, subsequent encounter; Z91.14 Patient's other noncompliance with medication regimen; Z79.4 Long term (current) use of insulin; Z86.69 Personal history of other diseases of the nervous system and sense organs; Z91.5 Personal history of self-harm; Z59.0 Homelessness
CPT/HCPCS: 36415; 80053; 81025; 82962; 85027; 87389

== ENCOUNTER 2019-03-03 11:31 | Emergency (ER) | payer OTHER ==
[2019-03-03 11:46] VITALS: BP 129/93; PULSE 78; TEMP 98; BMI 27.3
--- NOTE | 2019-03-03 12:45 | PDOC ---
History of Present Illness - General Chief Complaint: Injury Stated Complaint: FRACTURED FINGER Time Seen by Provider: 03/03/19 12:16 History Source: Patient Exam Limitations: Clinical Condition - History of Present Illness Initial Comments: 03/03/19 12:38 Patient with history of multi-substance abuse and alcohol refraining being admitted for detox presenting for evaluation of left index finger swelling and pain status post injury left index finger 3 weeks ago. Patient reports she was seen at [facility] yesterday for finger problem and hyper flexed finger was reduced at [facility] yesterday after digital block by report she was placed in a finger brace but left finger Hyperflex again and wants to be evaluated before going to detox center. Denies numbness or tingling sensation to the finger. Denies any other symptoms Occurred: reports: other (3 weeks) Past History - Past Medical History Allergies/Adverse Reactions: Allergies Allergy/AdvReac Type Severity Reaction Status Date / Time No Known Allergies Allergy Verified 03/03/19 11:45 Home Medications: Ambulatory Orders Atorvastatin Calcium [Lipitor] 20 mg PO HS 08/02/18 Divalproex Sodium [Divalproex Sodium ER] 1,000 mg PO HS 08/02/18 Glipizide Xl [Glucotrol Xl -] 5 mg PO BID 08/02/18 Metformin HCl [Glucophage] 500 mg PO BID 08/02/18 Mirtazapine [Remeron -] 30 mg PO HS 08/02/18 traZODone HCL [Trazodone HCl] 50 mg PO HS 08/02/18 Ibuprofen [Ibu] 600 mg PO PRN 03/03/19 [id number] Ear Soln AD 03/03/19 Anemia: No Asthma: No Cancer: No Cardiac Disorders: No CVA: No COPD: No CHF: No Dementia: No Diabetes: Yes (NIDDM,non compliance) GI Disorders: No Disorders: No HTN: Yes (non compliance) Hypercholesterolemia: Yes (non compliance) Kidney Stones: No Liver Disease: No Seizures: Yes (DRUG RELATED) Thyroid Disease: No - Surgical History Abdominal Surgery: No Appendectomy: No Cardiac Surgery: No Cholecystectomy: No Lung Surgery: No Neurologic Surgery: No Orthopedic Surgery: Yes (fx, right lower leg in 2015 after a fall on black ice) - Reproductive History PID: No - Psycho Social/Smoking Cessation Hx Smoking History: Current every day smoker Have you smoked in the past 12 months: Yes Number of Cigarettes Smoked Daily: 6 Information on smoking cessation initiated: No 'Breaking Loose' booklet given: 01/21/19 Hx Substance Use Treatment: Yes ([facility]) Trauma Specific PMHX - Complaint Specific PMHX Arthritis: No Review of Systems - Review of Systems Able to Perform ROS?: Yes Is the patient limited Belizean proficient: No Constitutional: No: Fever, Weakness HEENTM: No: Symptoms Reported Respiratory: No: Symptoms reported Cardiac (ROS): No: Symptoms Reported ABD/GI: No: Symptoms Reported Musculoskeletal: Yes: Symptoms Reported, See HPI, Joint Swelling (left index finger), Muscle Pain (left index finger), Joint Stiffness (left index finger) Neurological: No: Numbness, Paresthesia, Tingling All Other Systems: Reviewed and Negative *Physical Exam - Vital Signs Last Vital Signs Temp Pulse Resp BP Pulse Ox 98 F 78 18 129/93 99 03/03/19 11:41 03/03/19 11:41 03/03/19 11:41 03/03/19 11:41 03/03/19 11:41 - Physical Exam Comments: 03/03/19 12:43 GENERAL: Well developed, well nourished. Awake and alert in mild acute distress PULMONARY: No evidence of respiratory distress. MUSCULOSKELETAL : Moderate swelling to proximal phalange of left index finger with mild swelling over middle phalange moderate swelling over proximal phalanx of left index finger. Hyperflex left index finger of left middle phalange of index finger. No bony deformities SKIN: Warm and dry. Normal capillary refill. Moderate swelling to proximal phalange of left index finger NEUROLOGICAL: Alert, awake, appropriate. No motor deficits in the lower extremities. Gait is normal without ataxia. PSYCHIATRIC: Cooperative. Good eye contact. Appropriate mood and affect. General Appearance: Yes: Nourished, Appropriately Dressed, Mild Distress ED Treatment Course - RADIOLOGY Radiology Studies Ordered: Category Date Time Status FINGER(S) LEFT [RAD] Stat Radiology 03/03/19 12:28 Ordered Medical Decision Making - Medical Decision Making 03/03/19 12:41 Patient with history of multi-substance abuse and alcohol refraining being admitted for detox presenting for evaluation of left index finger swelling and pain status post injury left index finger 3 weeks ago. Patient reports she was seen at [facility] yesterday for finger problem and hyper flexed finger was reduced at [facility] yesterday after digital block by report she was placed in a finger brace but left finger Hyperflex again and wants to be evaluated before going to detox center. Denies numbness or tingling sensation to the finger. Denies any other symptoms Exam significant for Hyperflex left index finger with moderate swelling to proximal phalanx of left index finger. X-ray of left index finger ordered to evaluate finger injury. Treat based on imaging results 03/03/19 13:33 X-ray of left index finger shows anterior dislocated medial phalange of the proximal phalanx of left index finger with moderate soft tissue swelling over proximal phalange of left index finger. Attempt made to reduce dislocated finger after left index finger anesthetized with digital block with 2% lidocaine but unsuccessful with finger reduction after multiple attempts. Prefabricated finger splint applied to finger and patient advised to follow-up with orthopedic hand specialist for management of finger dislocation given 3 weeks history of finger injury. Referral given for orthopedics 03/03/19 13:39 Patient is stable for transfer back to detox center Discharge - Discharge Information Problems reviewed: Yes Clinical Impression/Diagnosis: Dislocation, finger, interphalangeal joint Qualifiers: Encounter type: initial encounter Qualified Code(s): S63.279A - Dislocation of unspecified interphalangeal joint of unspecified finger, initial encounter Condition: Stable Disposition: HOME - Admission No - Follow up/Referral Referrals: Darryl Senior MD [Staff Physician] - - Patient Discharge Instructions Patient Printed Discharge Instructions: DI for Finger Dislocation Additional Instructions: Keep finger splint on this follow-up. Follow-up referred to orthopedist as soon as possible for management of dislocation of left index finger. - Post Discharge Activity
[2019-03-03] MEDS ORDERED: LIDOCAINE HCL 2% (50ML VIAL) SQ ONE (12:50)
[2019-03-03] MEDS ORDERED: LIDOCAINE HCL 2% (20ML MULTI-DOSE VIAL) NR ONE (12:51)
== END 2019-03-03 13:41 | disposition home or self-care (01) ==
LOC: JERFT 11:31
PROC: 0RSXXZZ Reposition Left Finger Phalangeal Joint, External Approach (ICD-10-PCS; principal; 2019-03-03)
PROC: 2W3KX1Z Immobilization of Left Finger using Splint (ICD-10-PCS; 2019-03-03)
DX: M24.445 Recurrent dislocation, left finger (principal); X50.9XXA Other and unspecified overexertion or strenuous movements or postures, initial encounter; Y93.89 Activity, other specified; Y92.89 Other specified places as the place of occurrence of the external cause; Y99.8 Other external cause status
CPT/HCPCS: 29130; 73140-TC-LT-FY; 96365; 99281-25